=== PATIENT | male | born 1935 | race Two or more races ===

== ENCOUNTER 2018-02-01 18:44 | Inpatient (IN) | payer OTHER ==
[~2018-02-01] VITALS: Ht 177.8 cm; Wt 99.8 kg
[~2018-02-01 18:44] MED LIST: ATEN50TA PO; RIVA10TA PO
[2018-02-01] MEDS ORDERED: IV NS 0.9% 500 ML BAG IV ONE (19:00)
--- NOTE | 2018-02-01 19:01 | NUR ---
BBRA [address] [place] [address] [place] [address] FOR SOB AND AMS, UNKNOWN LAST KNOWN WELL TIME. 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 SEEN BY MD FOR EVAL. VSS. SAFETY AND COMFORT MEASURES PROVIDED. WILL MONITOR.
[2018-02-01 19:17] LABS: BASOPHILS # (AUTO) 0.4 /CMM (0.0-0.2); BASOPHILS % (AUTO) 2.2 % (0.0-2.0); HEMATOCRIT 34 % (39-51); HEMOGLOBIN 11.6 g/dL (13.5-17.5); LYMPHOCYTES # (AUTO) 0.5 /CMM (0.8-4.8); LYMPHOCYTES % (AUTO) 2.5 % (20.0-44.0); MEAN CORPUSCULAR HEMOGLOBIN 29 PG (26.0-33.0); MEAN CORPUSCULAR HGB CONC 34 g/dl (31.0-36.0); MEAN CORPUSCULAR VOLUME 86 fL (80-96); MONOCYTES # (AUTO) 0.6 /CMM (0.1-1.30); MONOCYTES % (AUTO) 3.1 % (2.0-12.0); NEUTROPHILS # (AUTO) 16.9 /CMM (1.8-8.9); NEUTROPHILS % (AUTO) 92.2 % (43.0-81.0); PLATELET COUNT (AUTO) 98 /CMM (150-450); RDW COEFFICIENT OF VARIATION 14.8 (11.5-15.0); RED BLOOD CELL COUNT(AUTO) 3.98 MIL/uL (4.5-6.0); WHITE BLOOD COUNT (AUTO) 18.4 K/uL (4.3-11.0)
[2018-02-01] MEDS ORDERED: MAGN400O6 PO (19:19)
[2018-02-01] MEDS ORDERED: RIVA10TA PO (19:19)
[2018-02-01] MEDS ORDERED: LISI-607 PO (19:19)
[2018-02-01] MEDS ORDERED: CARV6.25 PO (19:19)
[2018-02-01] MEDS ORDERED: POTA-10 PO (19:19)
[2018-02-01] MEDS ORDERED: ACET-868 PO (19:19)
[2018-02-01] MEDS ORDERED: ROSU5TAB PO (19:19)
[2018-02-01] MEDS ORDERED: TRAM50TA2 PO (19:19)
[2018-02-01] MEDS ORDERED: BUME0.5T3 PO (19:19)
[2018-02-01] MEDS ORDERED: OMEP20TA5 PO (19:19)
[2018-02-01] MEDS ORDERED: MULT-213 PO (19:19)
--- NOTE | 2018-02-01 19:21 | NUR ---
RECEIVED REPORT FROM VALERI WILKINS FOR YARA.
--- NOTE | 2018-02-01 19:30 | NUR ---
PT TAKEN OFF OF NC AND PUT ON SIMPLE MASK 5L/M PER MD BEJARANO. WILL CONTINUE TO MONITOR PT.
[2018-02-01 19:33] LABS: CALCIUM, SERUM 8.8 mg/dL (8.5-10.1); CARBON DIOXIDE 29 mmol/L (21-32); CHLORIDE 104 mmol/L (98-107); CREATININE 2.4 mg/dL (0.6-1.3); GLUCOSE 119 mg/dL (74-106); POTASSIUM 3.8 mmol/L (3.5-5.1); SODIUM SERUM 141 mmol/L (136-145); UREA NITROGEN, BLOOD 43 mg/dL (7-18)
[2018-02-01 19:36] LABS: INR 2.04 (0.85-1.15)
[2018-02-01 19:39] LABS: ALANINE AMINOTRANSFERASE 19 U/L (12-78); ALKALINE PHOSPHATASE 90 U/L (46-116); ASPARTATE AMINOTRANSFERASE 29 U/L (15-37); BILIRUBIN,DIRECT 0.6 mg/dL (0.0-0.2); BILIRUBIN,TOTAL 4.1 mg/dL (0.2-1.0); TOTAL PROTEIN, SERUM 5.9 g/dL (6.4-8.2)
[2018-02-01] MEDS ORDERED: LORAZEPAM INJ 2 MG/ML VIAL ONE (19:44)
--- NOTE | 2018-02-01 19:45 | NUR ---
LACTIC ACID 2.3, DR BEJARANO NOTIFIED.
[2018-02-01] MEDS ORDERED: LEVOFLOXACIN 750 MG /D5W 150ML 150 ML IV ONE ×2 (20:00→20:12)
[2018-02-01] MEDS ORDERED: LORAZEPAM INJ 2 MG/ML VIAL IV ONE (20:00)
--- NOTE | 2018-02-01 20:15 | NUR ---
PER MD. BEJARANO, NEW BULLOCK CATHETER INSERTED TO OBTAIN CLEAN URINE SAMPLE AND DISCARD THE BULLOCK CATHETER THAT THE PT ORIGINALY CAME WITH. ORIGINAL BULLOCK CATHETER THAT THE PT CAME WITH HAD 400-450ML BRIGHT RED HEMATURIA IN THE COLLECTION CHAMBER THAT WAS NOT DRAINING. WHILE DC'ING OLD BULLOCK, 3 10CC SYRINGES WERE USED TO DEFLATE THE BALLOON, WITH A TOTAL OF 25CC OF FLUID IN THE SYRINGE. NEW BULLOCK CATHETER INSERTED, 10CC SYRINGE USED TO INFLATE THE BALLOON. BULLOCK SECURED TO LEG AND LEFT TO DRAIN HANGING FROM THE L SIDE OF RNEY. WITHIN 15 MINUTES, 1200ML-1400ML OF BRIGHT RED HEMATURIA WAS COLLECTED IN THE FLUID COLLECTION CHAMBER. MD BEJARANO MADE AWARE OF OUTPUT AMOUNT AND QUALITY. WAS TOLD TO CONTINUE TO MONITOR PER MD BEJARANO. WILL CONTINUE TO MONITOR PT.
[2018-02-01 20:34] LABS: BAND % (MANUAL) 17 % (0.0-5.0); LYMPHOCYTES % (MANUAL) 4 % (16-48); MONOCYTES % (MANUAL) 9 % (0-11.0); NEUTROPHILS % (MANUAL) 70 (42-76)
--- NOTE | 2018-02-01 20:35 | NUR ---
PT TO CT
--- NOTE | 2018-02-01 20:50 | NUR ---
PT BACK FROM CT
[2018-02-01] MEDS ORDERED: ASPIRIN 300 MG/SUPP.RECT RC ONE ×2 (20:51→21:30)
[2018-02-01] MEDS ORDERED: ASPIRIN 81 MG TAB.CHEW PO ONE (21:00)
--- NOTE | 2018-02-01 21:30 | NUR ---
PT RESTING IN BED WITH EYES CLOSED. VSS. MILD DISCOMFORT NOTED IN PT. PT ON SIMPLE MASK O2 AT 5L/M, SPO96%. WILL CONTINUE TO MONITOR PT.
[2018-02-01 21:36] LABS: APPEARANCE,URINE CLOUDY (CLEAR); BILIRUBIN,URINE 1+ (NEGATIVE); BLOOD, URINE 3+ Ery/uL (NEGATIVE); COLOR,URINE RED (YELLOW); KETONES,URINE NEGATIVE (NEGATIVE); LEUKOCYTE ESTERASE ,URINE 2+ (NEGATIVE); NITRITE, URINE NEGATIVE (NEGATIVE); PH,URINE 8.5 (5.0-8.0); PROTEIN,URINE 3+ mg/dl (NEGATIVE); UGLUCOSE NEGATIVE (NEGATIVE); UROBILINOGEN,URINE 0.2 EU/dL (0.2)
[2018-02-01 21:39] LABS: BACTERIA,URINE Moderate /HPF (None Seen); RBC,URINE TOO NUMEROUS TO COUN /HPF (0-2); SQUAMOUS EPITHELIAL CELL,UR Rare /HPF (None Seen)
--- NOTE | 2018-02-01 22:00 | NUR ---
RECEIVED CALL FROM JOSE WITH AUTHORIZATION NUMBER: [id number]
--- NOTE | 2018-02-01 22:34 | NUR ---
GAVE REPORT TO [place] TRAMMELL ROSALBA FOR YARA.
[2018-02-01 23:00] VITALS: BP 85/50
--- NOTE | 2018-02-01 23:00 | NUR ---
SYSTEMS SOFTWARE ENGINEER; RECEIVED PT FROM ER AT 2250, PT IS VERY RESTLESS, CONFUSED, GETTING OU OF BED, AGITATED, ON 5L FACE MASK SATURATING 90%, UNABLE TO CHECK THE BP DUE TO PT MOVING AROUND, CALLED DR MARRERO ORDER RECEIVED TO GIVE MORPHINE 2 MG IV PRN Q3H. ORDERS FROM DR MARRERO BILATERAL SOFT RESTRAINTS , APPLIED. ADMIITED UNDER DR MARRERO , DX UTI. DURING SKIN ASSESSMENT PT HAS SCARUM, PERIANAL REDNESS NOTED. PT HAS BULLOCK CATHETER WITH BRIGHT RED COLOR URINE, DR MARRERO AWARE. ONGOING MONITORING..
[2018-02-01] MEDS ORDERED: MORPHINE SULFATE INJ 2 MG/ML DISP.SYRIN IV PRN (23:30)
[2018-02-01] MEDS ORDERED: IV 1/2NS 1000 ML 1,000 ML IV PRN (23:30)
[2018-02-01] MEDS ORDERED: CEFTRIAXONE 1 G in IV D5W 50 ML IV SCH (23:30)
--- NOTE | 2018-02-01 23:30 | NUR ---
ORGANIZATIONAL PSYCHOLOGIST; TRANSFERRED PT TO ICU AFTER CODED IN [place] DUE TO KARISSA DOWN 35 AND ASYSTOLE, PEA, ACLS PROTOCOL INITIATED. DURING TRANSFER IN ICU, REPORT GIVEN TO CLAY/RN. UNABLE TO DO ANY ADMISSION ASSESSMENT. PT ARRIVED IN UNIT AT 2250 FROM [place] AND WAS VERY RESTLESS, CONFUSED, UNABLE TO CONTROL HIM, NOT EVEN GET THE CHANCE TO LEAVE THE ROOM AND CODED AT 2315.
[2018-02-02] MEDS ORDERED: IPRATROPIUM NEB FS 0.5 MG/2.5 ML AMPUL.NEB NEB PRN
[2018-02-02] MEDS ORDERED: NOREPINEPHRINE 16 MG in IV D5W 500 ML IV PRN ×2
[2018-02-02] MEDS ORDERED: PANTOPRAZOLE 40 MG VIAL IV SCH
[2018-02-02] MEDS ORDERED: PIPERACILLIN /TAZOBACTAM 2.25 G in IV D5W 50 ML IV SCH ×2
--- NOTE | 2018-02-02 | NUR ---
CENTRIFUGAL DRIER OPERATOR; PT TRANSFERRED TO ICU AT 2330 DUE TO CODE BLUE AT 2315 IN [place], PT WAS KARISSA DOWN TO 35 THEN ASYSTOLE, STARTED CPR, ACLS PROTOCOL INITIATED,INTUBATED BY ER MD DR MORGAN THEN TRANSFERRED TO ICU REPORT GIVEN TO CLAY/RN. DURING CODE BLUE IN ICU AT 0003, CALLED PT'S DAUGHTER MARISABEL DASILVA WANTS DNR/DNI WITNESSED WITH CHARGE NURSE/JANETTE OVER THE PHONE. PER DAUGHTER PT WAS DNR/DNI, DR MARRERO NOTIFIED PT'S CODE STATUS DNR/DNI.
[2018-02-02 00:02] VITALS: BP 40/27
[2018-02-02] MEDS ORDERED: NOREPINEPHRINE 4 MG/4 ML AMPUL IV ONE (00:04)
[2018-02-02 00:07] VITALS: BP 67/41
[2018-02-02] MEDS ORDERED: EPINEPHRINE (1:10,000) SYRINGE 1 MG/10 ML DISP.SYRIN IVP ONE ×2 (00:11)
[2018-02-02] MEDS ORDERED: ATROPINE SULFATE 1 MG/10 ML DISP.SYRIN IV ONE ×2 (00:11)
--- NOTE | 2018-02-02 00:12 | NUR ---
ICU/RN S/P POST 2ND CODE BLUE AFTER 1ST CODE IN [place].DR MARRERO AND DAUGHTER AWARE OF PT'S CONDITION.DR MORGAN SPOKE W/DR MARRERO.SEE IST AND SECOND CODE BLUE SHEET.LOLA RT DISCONNECTED PT FR.RESPIRATOR,RESPIRATIONS ABSENT.NO AUDIBLE HEART TONES OR PALPABLE PULSES.PUPILS FIXED AND DILATED.PRONOUNCED .
[2018-02-02 00:13] VITALS: BP 77/56
--- NOTE | 2018-02-02 01:05 | NUR ---
BONE DRIER OPERATOR. RECEIVED THE PT FROM [place] AT 2330 S/P CODE KOKO ,( INTUBATED FROM [place]. )RECEIVED THE PT WITH UNCONTROLLED AFIB. RATE WAS 150.IV RT AND LT HAND. NS WAS RUNNING. AROUND [address] MORGAN WAS AT BED SIDE. SEE CODE BLUE SHEET. BETWEEN CPR SAMIR RN SPOKE WITH PT DAUGHTER ANNETTE .CODE STATUS DNR/DNI . ACLS STOPPED DUE TO CODE STATUS UPDATED, PRONOUNCED 0009 . POST MORTEM CARE GIVEN.
--- NOTE | 2018-02-02 01:30 | NUR ---
RETRIMMER. PT DAUGHTER ANNETTE AT BED SIDE .
--- NOTE | 2018-02-02 01:31 | NUR ---
THERAPEUTIC MASSAGE TECHNICIAN NOTIFIED [facility] SPOKE WITH EVA .CASE #[id number].
--- NOTE | 2018-02-02 01:47 | NUR ---
OVERHEAD CRANE TECHNICIAN. BODY TRANSFER TO [facility].
--- NOTE | 2018-02-02 01:48 | NUR ---
TECHNICAL ADMINISTRATOR. CALLED [facility]NER BODY RELEASED.
== END 2018-02-02 00:12 | disposition expired | DRG 871 ==
LOC: ER 18:49 → TELE1 22:19 → TELE-TD 23:17 → ICU 23:44
PROVIDERS: ADMIT Internal Medicine; ATTEND Internal Medicine
PROC: 0BH17EZ Insertion of Endotracheal Airway into Trachea, Via Natural or Artificial Opening (ICD-10-PCS; principal; 2018-02-02)
PROC: 5A2204Z Restoration of Cardiac Rhythm, Single (ICD-10-PCS; 2018-02-02)
DX: A41.9 Sepsis, unspecified organism (principal); J69.0 Pneumonitis due to inhalation of food and vomit; I21.4 Non-ST elevation (NSTEMI) myocardial infarction; J96.90 Respiratory failure, unspecified, unspecified whether with hypoxia or hypercapnia; N17.9 Acute kidney failure, unspecified; G93.41 Metabolic encephalopathy; N39.0 Urinary tract infection, site not specified; R04.89 Hemorrhage from other sites in respiratory passages; E78.5 Hyperlipidemia, unspecified; I10 Essential (primary) hypertension; Z79.899 Other long term (current) drug therapy; Z66 Do not resuscitate; Z86.73 Personal history of transient ischemic attack (TIA), and cerebral infarction without residual deficits; R33.9 Retention of urine, unspecified; I67.1 Cerebral aneurysm, nonruptured; I48.91 Unspecified atrial fibrillation
CPT/HCPCS: 36415; 70450-TC; 71045-TC; 80048-TC; 80076-TC; 81000-TC; 82962-TC; 83605-TC; 84484-TC; 85025-TC; 85730-TC; 87040-TC; 87081-TC; 87086-TC; 87186-TC; A4606; J0171; J0461; J0696; J1956; J2060; J2270; J2543; J7040; J7060; Z7610